=== PATIENT | male | born 1995 | race Caucasian/White ===

== ENCOUNTER 2016-12-23 22:07 | Emergency (ER) | payer BC ==
[~2016-12-23] VITALS: Ht 177.8 cm; Wt 60.9 kg
[2016-12-23 22:18] VITALS: TEMP 36.6; Ht 177.8 cm; Wt 60.9 kg
--- NOTE | 2016-12-23 22:51 | DIAGNOSTIC IMAGING REPORT ---
RIGHT SHOULDER MIN 2 VIEWS ROUTINE CLINICAL HISTORY: Right shoulder pain. Trauma. COMPARISON: None. DISCUSSION: No acute fractures or dislocations are visualized. Minimal irregularity of the inferior scapular glenoid is felt to be chronic. There are no visible periarticular calcifications. IMPRESSION: No acute fractures or dislocations identified. Electronically signed by: Angelo Osborne M.D. 12/23/2016 10:49 PM Dictated Date/Time: 12/23/2016 10:48 PM
--- NOTE | 2016-12-23 23:12 | EMERGENCY ROOM VISIT NOTE ---
ED Visit Note First contact with patient: 22:22 CHIEF COMPLAINT: Right shoulder injury this evening HISTORY OF PRESENT ILLNESS: Patient is a [id number] 21-year-old white male who presents emergency department for evaluation of right shoulder pain. He was sparring in martial arts, and fell, landing directly on his right shoulder. PMH onset of pain in the top of the shoulder that is worse with any movement. He rates the pain a sharp 8 out of 10. He is fine when he is at rest. He did not take any medications, nor perform any intervention for his symptoms. He denies any numbness, tingling or weakness radiating into the right upper extremity. He did not feel at the shoulder dislocated or subluxed. The patient did not hear a cracking the sound at the time of the injury. REVIEW OF SYSTEMS: Review of systems as per HPI. All other systems reviewed were negative. At least 6 systems reviewed. PMH: Electronic medical records are reviewed and summarized as above/below. See Problem List. SOCIAL HISTORY: Patient lives at home. College student. Nonsmoker. PHYSICAL EXAM: Vital Signs: Reviewed nurse's notes. CONSTITUTIONAL: Patient is a well-appearing 21-year-old white male who is awake and alert and in no acute distress. MUSCULOSKELETAL: Examination of the right shoulder does not show any obvious deformity. Patient is markedly tender over the acromioclavicular joint , with slight soft tissue swelling noted. No pain over the body of the clavicle or the proximal humerus. Passively he can be internally and externally rotated fully. He has pain with abduction greater than 90 and flexion greater than 70. The right upper extremity is neurovascularly intact. EMERGENCY DEPARTMENT COURSE: An X-ray of the shoulder does not show any fractures, dislocations, or other abnormality. Clinically the patient appears to have suffered from an acromioclavicular joint separation. The patient declined an arm sling. Conservative care measures were discussed. Differential diagnoses also entertained included dislocation, subluxation, contusion, soft tissue injury including rotator cuff, capsule, or labrum, among others. Current/Historical Medications No Active Prescriptions or Reported Meds Allergies Coded Allergies: No Known Allergies (Unverified , 12/23/16) Vital Signs Date Time Temp Pulse Resp B/P Pulse Ox O2 Delivery O2 Flow Rate FiO2 12/23/16 23:18 74 20 124/70 98 12/23/16 22:18 36.6 55 18 158/94 98 Room Air Departure Information Impression Primary Impression: Separation of right acromioclavicular joint Prescriptions No Active Prescriptions or Reported Meds Referrals [facility] (PCP) Patient Instructions [facility] Additional Instructions Ibuprofen(Motrin, Advil) may be used for fever or pain. Use 600mg every six hours as needed. Take with food. Avoid using more than 2400mg in a 24 hour period. Do not use 2400mg per day for more than three consecutive days without physician direction. Prolonged inappropriate use can lead to stomach upset or ulcers. This medication can be taken if you need to drive, work, or perform activities which may be dangerous when taking narcotic pain medication. (AND/OR) Acetaminophen(Tylenol) may be used for fever or pain. Use 1000mg every six hours as needed. Avoid using more than 3000mg in a 24 hour period. This medication can be taken if you need to drive, work, or perform activities which may be dangerous when taking narcotic pain medication. Ice compresses for 20 minutes at a time four times daily for 2-3 days. Rest your injury. Continue current medications. Return to the ER immediately for any numbness, tingling, severe pain, extreme swelling in the extremity or as needed. Followup with S or orthopedic surgery if no improvement in 5-7 days.
[2016-12-23 23:18] VITALS: BP 124/70; PULSE 74; O2SAT 98
== END 2016-12-23 23:24 | disposition home or self-care (01) ==
LOC: C.EDB 22:09 → C.EDA 23:24
DX: S43.101A Unspecified dislocation of right acromioclavicular joint, initial encounter (principal); W19.XXXA Unspecified fall, initial encounter; Y93.75 Activity, martial arts; Y92.89 Other specified places as the place of occurrence of the external cause